=== PATIENT | female | born 1950 | race African-American/Black ===

== ENCOUNTER 2017-01-19 12:01 | Emergency (ER) | payer OTHER ==
[~2017-01-19] VITALS: Ht 176.5 cm; Wt 108.9 kg
[~2017-01-19 12:01] MED LIST: ASPIRIN CHILDRE81 MG PO; BETAPACE 80MG T80 MG PO; HYDROCHLOROTH12.5 MG PO; MOTRIN800 MG PO; OMEGA 31000 MG; OMEPRAZOLE D/R20 MG PO; OSTEO BI-FLEX 21 TAB PO; POTASSIUM CHELA99 MG PO; VICODIN5-300 PO; VITAB121000; VITAMIN C500 M7 PO; VITAMIN E; VITAMIN E400 I1 PO; [UNRECOGNIZED DRUG - OTHER]
--- NOTE | 2017-01-19 14:44 | ED GENERAL ADULT ---
History of Present Illness General Chief Complaint: Lower Extremity Problems Stated Complaint: RIGHT SIDED PAIN FROM HIP TO KNEE X 1 WEEK Source: patient Exam Limitations: no limitations Vital Signs & Intake/Output Vital Signs & Intake/Output Vital Signs Date Time Temp Pulse Resp B/P B/P Pulse O2 O2 Flow FiO2 Mean Ox Delivery Rate 01/19 1521 97.3 59 18 153/69 98 Room Air 01/19 1209 97.5 67 20 138/74 99 Room Air Room Air Allergies Coded Allergies: latex (Intermediate, ITCHING 01/19/17) Triage Note: PT TO ED WITH C/O RIGHT HIP, FLANK PAIN RADIATING DOWN RIGHT LEG, HX R HIP REPLACEMENT 2 YEARS AGO. [facility], WHEELCHAIR GIVEN FOR COMFORT, "WENT TO THE DOCTOR ON SUNDAY, GIVEN TRAMADOL, NOT WORKING". HAD MRI OF RIGHT HIP. Triage Nurses Notes Reviewed? yes HPI: 66-year-old female with a history of A. fib and lumbar disc disease presenting with right low back pain radiating into the right lower extremity 2-3 weeks. Has been seen by both her primary care doctor and orthopedic doctor, was sent for an MRI that showed "a pinched nerve." He was given acetaminophen and tramadol, which she has been using without relief. He reports that the pain is starting to make it difficult for her to ambulate. Denies fevers, IV drug use, saddle paresthesias, urinary/bowel incontinence/retention. (BRAULIO FORDE,SALVADOR) Reconcile Medications Acetaminophen 500 MG TABLET 1 TAB PO BID PRN PAIN (Reported) Ascorbic Acid (Vitamin C) 500 MG CAPSULE.ER 1 CAP PO DAILY VITAMIN SUPPORT ( Reported) Aspirin (Children's Aspirin) 81 MG TAB.CHEW 1 TAB PO DAILY BLOOD HEALTH Chondroitin Sulfate/Glucosam (Osteo Bi-Flex 200 MG-250 MG) (Unknown Strength) TAB (Unknown Dose) PO DAILY SUPPLEMENT (Reported) Fish Oil ([place] 3) (Unknown Strength) SGL (Unknown Dose) UNKNOWN (Reported) Hydrochlorothiazide 12.5 MG CAPSULE 12.5 MG PO DAILY DIURETIC (Reported) Lidocaine (Lidoderm) 5 % ADH..PATCH 1 PAT TOP DAILY PRN back pain may wear up to 12 hours Naproxen (Naprosyn) 500 MG TABLET 1 TAB PO BID PRN back pain Potassium (Potassium Chelated) 99 MG TAB 1 TAB PO DAILY SUPPLEMENT (Reported) Tramadol HCl 50 MG TABLET 1 TAB PO BIDP PRN PAIN (Reported) Vitamin B Complex (B Complex) 1 EACH TABLET 1 TAB PO DAILY VITAMIN SUPPORT ( Reported) Vitamin E 400 IU TAB 1 TAB PO DAILY SUPPLEMENT (Reported) (YUNG DUNNE,REUBEN) Past History Travel History Traveled to [place] past 21 day No Medical History Any Pertinent Medical History? see below for history Neurological: NONE EENT: NONE Cardiovascular: AFIB Respiratory: NONE Gastrointestinal: GERD, hiatal hernia Hepatic: NONE Renal: NONE Musculoskeletal: lumbar spine disc disease Psychiatric: NONE Endocrine: NONE Blood Disorders: NONE Cancer(s): NONE RN HOUSE SUPERVISOR/Reproductive: NONE History of MRSA: No History of VRE: No History of CDIFF: No Tetanus Vaccine: 02/08/15 Surgical History Surgical History: hip replacement Psychosocial History Who do you live with Patient/Self Services at Home None What is your primary language Nepali Tobacco Use: Never used ETOH Use: denies use Illicit Drug Use: denies illicit drug use Family History Family History, If Any: SISTER MOTHER Relation not specified for: FH: CAD (coronary artery disease) FH: diabetes mellitus FH: HTN (hypertension) Hx Contributory? No (SALVADOR RAMSEY PA-C) Review of Systems Review of Systems Constitutional: Reports: no symptoms. EENTM: Reports: no symptoms. Respiratory: Reports: no symptoms. Cardiovascular: Reports: no symptoms. GI: Reports: no symptoms. Genitourinary: Reports: no symptoms. Musculoskeletal: Reports: back pain. Denies: neck pain. Skin: Reports: no symptoms. Neurological/Psychological: Reports: no symptoms. Hematologic/Endocrine: Reports: no symptoms. Immunologic/Allergic: Reports: no symptoms. (SALVADOR RAMSEY PA-C) Physical Exam Physical Exam General Appearance: well developed/nourished, no apparent distress, alert, awake , comfortable Head: atraumatic Neck: normal inspection, supple, full range of motion, no midline tenderness Respiratory: normal breath sounds, lungs clear Cardiovascular: regular rate/rhythm, normal peripheral pulses Gastrointestinal: soft, non-tender Back: normal inspection, normal range of motion, no vertebral tenderness, tenderness to palpation over the right low back muscles, positive right-sided straight leg raise, BLE's are NV intact Extremities: normal inspection, normal range of motion Neurologic/Psych: no motor/sensory deficits, awake, alert, oriented x 3, normal mood/affect, patient is able to ambulate however demonstrates a limp favoring the left side Skin: intact, normal color, warm/dry Core Measures ACS in differential dx? No CVA/TIA Diagnosis: No Severe Sepsis Present: No Septic Shock Present: No (SALVADOR RAMSEY PA-C) Progress Differential Diagnoses I considered the following diagnoses in my evaluation of the patient: [Sciatica versus musculoskeletal strain versus disc herniation versus cauda equina versus epidural abscess] Plan of Care: Patient states that she does not want to be treated with narcotic medications. Will give IM Toradol and lidocaine patch in the ED. Will discharge with Rx M patches and naproxen. Instructed to follow-up with her primary care doctor or orthopedist on Sunday. Initial ED EKG: none (SALVADOR RAMSEY PA-C) Departure Departure Disposition: HOME OR SELF CARE Condition: Stable Clinical Impression Primary Impression: Low back pain Referrals: CORIN CRANE MD (PCP/Family) Additional Instructions: Take 500 mg of naproxen twice a day with a meal as needed for pain. Apply 1 Lidoderm patch to the right low back once a day as needed for pain. Follow-up with both your primary care provider and her orthopedic doctor for reevaluation. Return to the ER for any normal worsening symptoms. Departure Forms: Customer Survey General Discharge Information (SALVADOR RAMSEY PA-C) Departure Prescriptions: Current Visit Scripts Naproxen (Naprosyn) 1 TAB PO BID PRN back pain #60 TAB Lidocaine (Lidoderm) 1 PAT TOP DAILY PRN back pain #30 PAT may wear up to 12 hours PA/TERMITE CONTROL SERVICE REPRESENTATIVE Co-Sign Statement Statement: ED Attending supervision documentation- [] I saw and evaluated the patient. I have also reviewed all the pertinent lab results and diagnostic results. I agree with the findings and the plan of care as documented in the PA's/TERMITE CONTROL SERVICE REPRESENTATIVE's documentation. [X] I have reviewed the ED Record and agree with the PA's/TERMITE CONTROL SERVICE REPRESENTATIVE's documentation. [] Additions or exceptions (if any) to the PAs/TERMITE CONTROL SERVICE REPRESENTATIVE's note and plan are summarized below: [] (YUNG DUNNE,REUBEN) Critical Care Note Critical Care Note Critical Care Time: non-applicable (SALVADOR RAMSEY PA-C)
[2017-01-19] MEDS ORDERED: TRAMADOL HCL50 M1 PO (14:47)
[2017-01-19] MEDS ORDERED: ACETAMINOPHEN500 M4 PO (14:48)
[2017-01-19] MEDS ORDERED: B COMPLEX1 EACH PO (14:49)
[2017-01-19] MEDS ORDERED: LIDODERM1 EACH TOP (14:51)
[2017-01-19] MEDS ORDERED: NAPROSYN500 M1 PO (14:51)
[2017-01-19 15:21] VITALS: BP 153/69
== END 2017-01-19 15:37 ==
LOC: ERH 12:01
DX: M54.5 Low back pain (principal)
CPT/HCPCS: 96372; J1885